=== PATIENT | male | born 1985 | race Two or more races ===

== ENCOUNTER 2023-10-23 11:38 | Emergency (ER) | payer MEDICAID ==
[~2023-10-23] VITALS: Ht 180.3 cm; Wt 90.7 kg
[2023-10-23 11:44] VITALS: BP 161/114; PULSE 63; RESP 15; TEMP 99.5
[2023-10-23] MEDS ORDERED: ACETAMINOPHEN 325MG TABLET PO ONE (12:00)
== END 2023-10-23 14:11 | disposition left against medical advice (07) ==
LOC: ER 11:38
DX: S09.90XA Unspecified injury of head, initial encounter (principal); Z53.21 Procedure and treatment not carried out due to patient leaving prior to being seen by health care provider; X58.XXXA Exposure to other specified factors, initial encounter; Y93.89 Activity, other specified; Y92.89 Other specified places as the place of occurrence of the external cause; Y99.8 Other external cause status
CPT/HCPCS: 99281; 99284

== ENCOUNTER 2024-11-09 01:06 | Emergency (ER) | payer MEDICAID ==
[~2024-11-09] VITALS: Ht 182.9 cm; Wt 91.0 kg
[2024-11-09 01:19] VITALS: TEMP 98.4; O2SAT 96
[2024-11-09 02:09] VITALS: BP 134/86; PULSE 105; RESP 18
[2024-11-09] MEDS: IBUPROFEN 600MG TABLET PO STA (02:09)
== END 2024-11-09 02:44 | disposition left against medical advice (07) ==
LOC: ER 01:06
DX: R07.89 Other chest pain (principal); I10 Essential (primary) hypertension
CPT/HCPCS: 99283

== ENCOUNTER 2024-11-09 03:01 | Emergency (ER) | payer MEDICAID ==
[~2024-11-09] VITALS: Ht 172.7 cm; Wt 105.0 kg
[2024-11-09 03:14] VITALS: O2SAT 100
[2024-11-09 03:22] VITALS: O2SAT 100
[2024-11-09 03:53] LABS: BASOPHILS % 0.4 % (0.0-2.0); EOSINOPHILS % 1.3 % (0.0-5.0); HEMATOCRIT. 52.8 % (42.0-52.0); HEMOGLOBIN. 17.2 g/dL (14.0-18.0); MEAN CORPUSCULAR HEMOGLOBIN 30.1 pg (28.0-32.0); MEAN CORPUSCULAR HGB CONC 32.6 g/dL (31.0-37.0); MEAN CORPUSCULAR VOLUME 92.4 fL (80.0-94.0); MEAN PLATELET VOLUME 8.7 fl (7.4-10.4); MONOCYTES % 12.3 % (2.0-8.0); PLATELET 172 x1000/uL (130-400); RED BLOOD CELL COUNT 5.71 mill/uL (4.7-6.1); RED CELL DISTRIBUTION WIDTH 14.7 % (11.6-14.6); WHITE BLOOD COUNT 5.3 x1000/uL (4.5-11.0)
[2024-11-09 04:21] LABS: CHLORIDE 103 mEq/L (98-107); POTASSIUM 3.5 mEq/L (3.5-5.1); SODIUM 136 mEq/L (136-145)
[2024-11-09 04:22] LABS: CARBON DIOXIDE 22 mEq/L (21-32)
[2024-11-09 04:23] LABS: CALCIUM 9.8 mg/dL (8.7-10.4)
[2024-11-09 04:27] LABS: CREATININE 1.1 mg/dL (0.6-1.3); GLUCOSE 110 mg/dL (70-105)
[2024-11-09 04:30] LABS: UREA NITROGEN BLOOD < 5 mg/dL (9-23)
[2024-11-09 04:34] VITALS: BP 125/84; PULSE 102; RESP 19; TEMP 98.2
[2024-11-09 04:34] LABS: TROPONIN I HIGH SENSITIVITY < 4 ng/L (3.0-53)
[2024-11-09] MEDS: IBUPROFEN 600MG TABLET PO STA (04:34)
[2024-11-09] MEDS: ACETAMINOPHEN 325MG TABLET PO STA (04:34)
[2024-11-09] MEDS ORDERED: ASPIRIN 81MG TABLET PO ONE (05:00)
[2024-11-09] MEDS ORDERED: NITROGLYCERIN OINT 1GM/INCH UDPKT TD ONE (05:00)
== END 2024-11-09 05:50 | disposition left against medical advice (07) ==
LOC: ER 03:01
DX: R07.89 Other chest pain (principal); F20.9 Schizophrenia, unspecified; F41.9 Anxiety disorder, unspecified; F15.90 Other stimulant use, unspecified, uncomplicated
CPT/HCPCS: 36415; 71045; 80048; 84484; 85025; 99284